=== PATIENT | male | born 1975 | race Asian ===

== ENCOUNTER 2023-02-04 19:35 | Emergency (ER) | payer OTHER, SELFPAY ==
[2023-02-04] VITALS (11 sets, daily range): BP systolic 116–132; BP diastolic 72–79; PULSE 101–109; RESP 21–28; TEMP 37.3; O2SAT 92–96; BMI 20.7
--- NOTE | 2023-02-04 19:52 | DI.RAD.S_ITS ---
PROCEDURE: XR CHEST 1V INDICATIONS: Shortness of breath TECHNIQUE: One view of the chest was acquired. COMPARISON: [facility], CR, XR CHEST 1 VIEW, 01/28/2023, 17:36. FINDINGS: Surgical changes and devices: None. Lungs and pleura: Lungs are clear. No pleural effusions or pneumothorax. Mediastinum: Mediastinal contours appear normal. Heart size is normal. Bones and chest wall: No suspicious bony lesions. Overlying soft tissues appear unremarkable. IMPRESSION: 1. No acute cardiopulmonary disease. Dictated by: Ildefonso Luna M.D. on 02/04/2023 at 20:24 Approved by: Ildefonso Luna M.D. on 02/04/2023 at 20:24
--- NOTE | 2023-02-04 20:04 | ED_ITS ---
HPI - SOB/Dyspnea General Chief Complaint: Shortness of Breath/Dyspnea Stated Complaint: asthma, difficulty breathing Time Seen by Provider: 02/04/23 20:03 Source: patient Mode of arrival: other Limitations: no limitations History of Present Illness HPI Narrative: Patient is a 47-year-old male with history of asthma presenting today with increasing shortness of breath. He reports it has been ongoing for the last few days. No real fever or chills. He just has a hard time breathing. No abdominal pain nausea or vomiting no chest pain. Related Data Previous Rx's Medication Instructions Recorded albuterol sulfate 2.5 mg/3 mL 2.5 mg (3 mL) inhalation QID PRN 02/04/23 (0.083 %) solution for nebulization bronchospasm #75 mL prednisone 20 mg tablet 40 mg PO DAILY #10 tabs 02/04/23 Allergies Allergy/AdvReac Type Severity Reaction Status Date / Time No Known Drug Allergies Allergy Verified 02/04/23 20:24 Review of Systems Review of Systems ROS Unobtainable: All systems reviewed & are unremarkable except as noted in HPI and below Exam Initial Vital Signs Initial Vital Signs: Vital Signs Temperature 99.1 F 02/04/23 19:38 Pulse Rate 107 H 02/04/23 19:38 Respiratory Rate 24 02/04/23 19:38 Blood Pressure 116/79 02/04/23 19:38 Pulse Oximetry 93 02/04/23 19:38 Oxygen Delivery Method Room Air 02/04/23 19:38 GENERAL: Alert 47-year-old male appears in [id number] respiratory distress HEENT: Head atraumatic,EOMI, pupils reactive, face symmetric, moist mucous membranes CARDIOVASCULAR: Regular rate and rhythm without murmurs, rubs or gallops. RESPIRATORY: Wheezing throughout tachypneic able to speak in full sentences ABDOMEN: Soft, nontender. Normoactive bowel sounds all 4 quadrants. No guarding or rebound. EXTREMITIES: Normal range of motion, no clubbing or edema. Neurovascularly intact NEUROLOGICAL: Alert and oriented x4.Normal gait and speech. SKIN: Warm, dry, no laceration, no petechiae, no rashes or lesions. Course Orders Ordered: ED Orders 02/04/23 19:46 Respiratory Panel (Film Array) Stat 02/04/23 19:52 XR chest 1V Stat Measure peak expiratory flow ONCE RT Consult Eval and Treat NOW 02/04/23 20:00 EKG-12 Lead Stat 02/04/23 20:05 Complete Blood Count AUTO DIFF Stat Comprehensive Metabolic Panel Stat Lactate (Lactic Acid) Stat NT-proBNP (BNP-Adult 18+) Stat Prothrombin Time INR Stat Troponin I Stat Discontinued Medications Albuterol (Albuterol Hfa Prepack) 1 box MISC SEEINSTR ONE Stop: 02/04/23 22:09 Last Admin: 02/04/23 22:12 Dose: 1 box Documented By: ULCY Albuterol/Ipratropium (Albuterol/Ipratropium 3 Ml Ampul) 9 ml INH NOW ONE Stop: 02/04/23 20:05 Last Admin: 02/04/23 20:08 Dose: 9 ml Documented By: GAEL Methylprednisolone (Methylprednisolone 125 Mg/2 Ml Vial) 125 mg IV NOW ONE Stop: 02/04/23 20:05 Last Admin: 02/04/23 20:24 Dose: 125 mg Documented By: ESTUARDO Vital Signs Vital signs: Vital Signs - 8 hr 02/04/23 19:38 02/04/23 20:08 02/04/23 19:54 Temperature 99.1 F Pulse Rate 107 H 103 H 104 H Respiratory Rate 24 24 Blood Pressure 116/79 Pulse Oximetry 93 96 95 Oxygen Delivery Method Room Air Room Air 02/04/23 20:00 02/04/23 20:00 02/04/23 20:15 Temperature Pulse Rate 101 H 103 H Respiratory Rate 25 H 26 H Blood Pressure 125/77 Pulse Oximetry 95 94 Oxygen Delivery Method 02/04/23 20:30 02/04/23 20:30 02/04/23 20:45 Temperature Pulse Rate 109 H 107 H Respiratory Rate 22 21 Blood Pressure 132/79 Pulse Oximetry 93 92 Oxygen Delivery Method Room Air 02/04/23 21:00 02/04/23 21:00 02/04/23 21:15 Temperature Pulse Rate 104 H 103 H Respiratory Rate 23 24 Blood Pressure 129/72 Pulse Oximetry 93 95 Oxygen Delivery Method 02/04/23 21:30 02/04/23 21:30 02/04/23 21:45 Temperature Pulse Rate 104 H 101 H Respiratory Rate 28 H 28 H Blood Pressure 130/73 Pulse Oximetry 95 95 Oxygen Delivery Method MDM - SOB/Dyspnea Lab Data 02/04/23 20:05 02/04/23 20:05 Labs: Lab Results 02/04/23 02/04/23 02/04/23 Range/Units 19:46 20:05 20:05 WBC 9.9 (4.5-11.0) X10^3/uL RBC 5.11 (4.5-5.9) X10^6/uL Hgb 13.9 (13.5-17.5) g/dL Hct 41.8 (41-53) % MCV 81.8 (80-100) fL MCH 27.2 (26-34) PG MCHC 33.2 (30-36) % RDW 15.4 H (11.6-14.8) % Plt Count 166 (150-400) X10^3/uL Neut % (Auto) 53.2 (50-75) % Lymph % (Auto) 27.0 (25-40) % [place] % (Auto) 11.0 (3-14) % Eos % (Auto) 8.1 H (2-4) % Baso % (Auto) 0.7 (0-2) % Neut # (Auto) 5200 (2023-3314) /uL Lymph # (Auto) 2700 (2690-4524) /uL [place] # (Auto) 1100 H (0-900) /uL Eos # (Auto) 800 H (0-450) /uL Baso # (Auto) 100 (0-100) /uL PT 12.6 (10.1-12.7) SECONDS INR 1.1 (0.9-1.3) Sodium (137-145) mmol/L Potassium (3.4-5.1) mmol/L Chloride (98-107) mmol/L Carbon Dioxide (22-32) mmol/L BUN (9-20) mg/dL Creatinine (0.66-1.25) mg/dL Estimated GFR (>60) mL/min BUN/Creatinine Ratio (6-22) Glucose (70-100) mg/dL Lactate (0.7-2.1) mmol/L Calcium (8.4-10.2) mg/dL Total Bilirubin (0.2-1.3) mg/dL AST (17-59) IU/L ALT (<50) IU/L Alkaline Phosphatase (38-126) U/L Troponin I (0.01-0.034) ng/mL NT-Pro-B Natriuret Pep (<125) pg/mL Total Protein (6.3-8.2) g/dL Albumin (3.5-5.0) g/dL Globulin (1.7-4.1) g/dL Albumin/Globulin Ratio (1.0-2.8) Chlamy pneumoniae PCR Not detected (Not Detect) Adenovirus (PCR) Not detected (Not Detect) B. pertussis DNA (PCR) Not detected (Not Detecte) B.parapertussis DNA PCR Not detected (Not Detecte) Coronavirus OC43 (PCR) Not detected (Not Detect) Coronavirus HKU1 (PCR) Not detected (Not Detect) Coronavirus 229E (PCR) Not detected (Not Detect) SARS-CoV-2 (PCR) Not detected (Not Detecte) Coronavirus NL63 (PCR) Not detected (Not Detect) Human Metapneumovir PCR Not detected (Not Detect) Influenza Type A (PCR) Not detected (Not Detect) Influenza Type B (PCR) Not detected (Not Detect) M. pneumoniae (PCR) Not detected (Not Detect) Parainfluenza 1 (PCR) Not detected (Not Detect) Parainfluenza 2 (PCR) Not detected (Not Detect) Parainfluenza 3 (PCR) Not detected (Not Detect) Parainfluenza 4 (PCR) Not detected (Not Detect) RSV (PCR) Not detected (Not Detect) Entero/Rhino (PCR) Not detected (Not Detect) 02/04/23 02/04/23 Range/Units 20:05 20:05 WBC (4.5-11.0) X10^3/uL RBC (4.5-5.9) X10^6/uL Hgb (13.5-17.5) g/dL Hct (41-53) % MCV (80-100) fL MCH (26-34) PG MCHC (30-36) % RDW (11.6-14.8) % Plt Count (150-400) X10^3/uL Neut % (Auto) (50-75) % Lymph % (Auto) (25-40) % [place] % (Auto) (3-14) % Eos % (Auto) (2-4) % Baso % (Auto) (0-2) % Neut # (Auto) (7184-8293) /uL Lymph # (Auto) (6551-2860) /uL [place] # (Auto) (0-900) /uL Eos # (Auto) (0-450) /uL Baso # (Auto) (0-100) /uL PT (10.1-12.7) SECONDS INR (0.9-1.3) Sodium 135 L (137-145) mmol/L Potassium 3.7 (3.4-5.1) mmol/L Chloride 104 (98-107) mmol/L Carbon Dioxide 24 (22-32) mmol/L BUN 11 (9-20) mg/dL Creatinine 0.70 (0.66-1.25) mg/dL Estimated GFR > 60 (>60) mL/min BUN/Creatinine Ratio 15.7 (6-22) Glucose 77 (70-100) mg/dL Lactate 1.4 (0.7-2.1) mmol/L Calcium 8.8 (8.4-10.2) mg/dL Total Bilirubin 1.0 (0.2-1.3) mg/dL AST 36 (17-59) IU/L ALT 27 (<50) IU/L Alkaline Phosphatase 84 (38-126) U/L Troponin I < 0.012 (0.01-0.034) ng/mL NT-Pro-B Natriuret Pep 168 H (<125) pg/mL Total Protein 7.2 (6.3-8.2) g/dL Albumin 4.1 (3.5-5.0) g/dL Globulin 3.1 (1.7-4.1) g/dL Albumin/Globulin Ratio 1.3 (1.0-2.8) Chlamy pneumoniae PCR (Not Detect) Adenovirus (PCR) (Not Detect) B. pertussis DNA (PCR) (Not Detecte) B.parapertussis DNA PCR (Not Detecte) Coronavirus OC43 (PCR) (Not Detect) Coronavirus HKU1 (PCR) (Not Detect) Coronavirus 229E (PCR) (Not Detect) SARS-CoV-2 (PCR) (Not Detecte) Coronavirus NL63 (PCR) (Not Detect) Human Metapneumovir PCR (Not Detect) Influenza Type A (PCR) (Not Detect) Influenza Type B (PCR) (Not Detect) M. pneumoniae (PCR) (Not Detect) Parainfluenza 1 (PCR) (Not Detect) Parainfluenza 2 (PCR) (Not Detect) Parainfluenza 3 (PCR) (Not Detect) Parainfluenza 4 (PCR) (Not Detect) RSV (PCR) (Not Detect) Entero/Rhino (PCR) (Not Detect) Imaging Data Chest x-ray: Radiologist's Impression: PROCEDURE:? XR CHEST 1V ? INDICATIONS:? Shortness of breath ? TECHNIQUE:? One view of the chest was acquired.? ? COMPARISON:? [facility], , XR CHEST 1 VIEW, 01/28/2023, 17:36. ? FINDINGS:? ? Surgical changes and devices:? None.? ? Lungs and pleura:? Lungs are clear.? No pleural effusions or pneumothorax.? ? Mediastinum:? Mediastinal contours appear normal.? Heart size is normal.? ? Bones and chest wall:? No suspicious bony lesions.? Overlying soft tissues appear unremarkable.? ? IMPRESSION:? ? 1.? No acute cardiopulmonary disease. ? ? ? Dictated by: Ildefonso Luna M.D. on 02/04/2023 at 20:24 ECG Data Interpretation: Normal sinus rhythm rate 101 CO interval 138 QRS 76 QTC 450, no ischemic changes MDM Narrative Medical decision making narrative: Patient 47 year male history of asthma presenting with increasing difficulty breathing. Breath sounds wheezing on. Multiple albuterol treatments and Solu- Medrol seem to help. Blood work is overall reassuring no evidence of infection or pneumonia on x-ray. EKG is sinus rhythm without ischemic changes. Patient has no leukocytosis or anemia significant electrolyte abnormality or troponin elevation. Symptoms improved he is hypoxic. Does not require admission to the hospital. Discharge Plan Departure Patient Disposition: Home Clinical Impression: Asthma with exacerbation Instructions: DI for Asthma -- Adult Activity Restrictions/Additional Instructions: *You have been diagnosed with asthma exacerbation *What to do: Hope you feel better soon. Uterine nebulizers as instructed. *Continue to take medications as directed--> SENT TO [facility] Prednisone 40 mg once a day for 5 days Albuterol nebulizer or inhaler every 4 hours as needed for shortness of breath or chest *Follow up with your primary care provider in 2-3 days or call [phone] *Return to ER if you should have increasing shortness of breath chest or any new, worsening or concerning symptoms Prescriptions: New albuterol sulfate 2.5 mg /3 mL (0.083 %) solution for nebulization 2.5 mg inhalation QID PRN (Reason: bronchospasm) Qty: 75 0RF prednisone 20 mg tablet 40 mg PO DAILY Qty: 10 0RF Stand Alone Forms: Patient Portal/API
[2023-02-04] MEDS: ALBUTEROL/IPRATROPIUM 3 ML AMPUL 9 ML INH (20:08)
[2023-02-04] MEDS: methylPREDNISolone 125 MG/2 ML VIAL IV (20:24)
[2023-02-04 20:40] LABS: Add Manual Diff / Slide Review NO; Basophils Absolute Auto 100 /uL (0-100); Basophils Percent Auto 0.7 % (0-2); Eosinophils Absolute Auto 800 /uL (0-450); Eosinophils Percent Auto 8.1 % (2-4); Hematocrit 41.8 % (41-53); Hemoglobin 13.9 g/dL (13.5-17.5); Lymphocytes Absolute Auto 2700 /uL (1100-4500); Mean Corpuscular HGB Conc 33.2 % (30-36); Mean Corpuscular Hemoglobin 27.2 PG (26-34); Mean Corpuscular Volume 81.8 fL (80-100); Monocytes Absolute Auto 1100 /uL (0-900); Neutrophils Absolute Auto 5200 /uL (1500-7000); Neutrophils Percent Auto 53.2 % (50-75); Platelet Count 166 X10^3/uL (150-400); Red Blood Cell Count 5.11 X10^6/uL (4.5-5.9); Red Cell Distribution Width 15.4 % (11.6-14.8); White Blood Cell Count 9.9 X10^3/uL (4.5-11.0)
[2023-02-04 20:46] LABS: INR 1.1 (0.9-1.3); Prothrombin Time 12.6 SECONDS (10.1-12.7)
[2023-02-04 20:49] LABS: Lactate (Lactic Acid) 1.4 mmol/L (0.7-2.1)
[2023-02-04 20:57] LABS: Alanine Aminotransferase 27 IU/L (<50); Albumin 4.1 g/dL (3.5-5.0); Albumin Globulin Ratio 1.3 (1.0-2.8); Alkaline Phosphatase 84 U/L (38-126); Aspartate Aminotransferase 36 IU/L (17-59); BUN Creatinine Ratio 15.7 (6-22); Blood Urea Nitrogen 11 mg/dL (9-20); Calcium 8.8 mg/dL (8.4-10.2); Carbon Dioxide 24 mmol/L (22-32); Chloride 104 mmol/L (98-107); Estimated Glomerular Filt Rate > 60 mL/min (>60); Globulin 3.1 g/dL (1.7-4.1); Glucose 77 mg/dL (70-100); HEMOLYSIS 25 (0-50); Potassium 3.7 mmol/L (3.4-5.1); Sodium 135 mmol/L (137-145); Total Protein 7.2 g/dL (6.3-8.2)
[2023-02-04 21:09] LABS: NT-proBNP (BNP-Adult 18+) 168 pg/mL (<125); Troponin I < 0.012 ng/mL (0.01-0.034)
[2023-02-04 21:24] LABS: Adenovirus Not Detected (Not Detect); Coronavirus 229E Not Detected (Not Detect); Coronavirus HKU1 Not Detected (Not Detect); Coronavirus NL 63 Not Detected (Not Detect); Coronavirus OC43 Not Detected (Not Detect); Human Metapneumovirus Not Detected (Not Detect); Human Rhinovirus/Enterovirus Not Detected (Not Detect); Influenza A Not Detected (Not Detect); Influenza B Not Detected (Not Detect); Parainfluenza Virus 1 Not Detected (Not Detect); Parainfluenza Virus 2 Not Detected (Not Detect); Parainfluenza Virus 3 Not Detected (Not Detect); SARS- CoV-2 Not Detected (Not Detecte)
[2023-02-04 21:25] LABS: B. parapertussis Not Detected (Not Detecte); Bordetella pertussis Not Detected (Not Detecte); Chlamydophila pneumoniae Not Detected (Not Detect); Mycoplasma pneumoniae Not Detected (Not Detect); Parainfluenza Virus 4 Not Detected (Not Detect); Respiratory Syncytial Virus Not Detected (Not Detect)
[2023-02-04] MEDS: ALBUTEROL HFA PREPACK 1 BOX MISC (22:12)
== END 2023-02-04 22:16 | disposition home or self-care (01) ==
PROVIDERS: Emergency Medicine; Emergency Provider Emergency Medicine
DX: J45.901 Unspecified asthma with (acute) exacerbation (principal)
CPT/HCPCS: 36415; 71045; 80053; 83605; 83880; 84484; 85025; 85610; 87633; 93005; 93010; 94150; 94640; 96374; 99284; J2930

== ENCOUNTER 2023-02-23 22:00 | Emergency (ER) | payer OTHER, SELFPAY ==
[2023-02-23 22:39] VITALS: BP 129/80; PULSE 100; RESP 18; TEMP 37.1; O2SAT 94
[2023-02-23] MEDS: ALBUTEROL/IPRATROPIUM 3 ML AMPUL INH (22:54)
[2023-02-23] MEDS: ALBUTEROL 2.5 MG/3 ML NEB (ADULT) INH ×2 (22:58→23:35)
[2023-02-23 23:06] VITALS: PULSE 105; O2SAT 96
[2023-02-23 23:07] VITALS: BP 123/75; PULSE 101; PULSE 98; O2SAT 95
[2023-02-23 23:30] VITALS: BP 123/74; PULSE 95; O2SAT 95
--- NOTE | 2023-02-23 23:37 | ED.GENADULT ---
HPI - General Adult General Chief complaint: Asthma Stated complaint: Run out of medicine Time Seen by Provider: 02/23/23 22:37 Source: patient Mode of arrival: Ambulatory History of Present Illness HPI narrative: 47-year-old male former smoker with history of asthma as moved here relatively recently and is having increased wheezing and difficulty in breathing. He denies any runny nose, sore throat or cough. He is had no fever or chills. He denies any chest pain, nausea, vomiting or diarrhea. He has run out of his albuterol nebulizers at home. His most recent visit for similar circumstances was a few weeks ago and he had a 5 day course of steroids at that time. Related Data Previous Rx's Medication Instructions Recorded albuterol sulfate 2.5 mg/3 mL 2.5 mg (3 mL) inhalation QID PRN 02/04/23 (0.083 %) solution for nebulization bronchospasm #75 mL prednisone 20 mg tablet 40 mg PO DAILY #10 tabs 02/04/23 albuterol sulfate 2.5 mg/3 mL 2.5 mg (3 mL) inhalation Q4-6H PRN 02/23/23 (0.083 %) solution for nebulization shortness of breath or wheezing #90 mL prednisone 10 mg tablet See Rx Instructions .Route 02/23/23 .COMPLEX #30 tabs Allergies Allergy/AdvReac Type Severity Reaction Status Date / Time No Known Drug Allergies Allergy Verified 02/04/23 20:24 Review of Systems Review of Systems Narrative: GENERAL: Denies chills, fatigue, malaise, fever, sweats. HEENT: Denies sinus pain, ear pain, sore throat, difficulty swallowing, dizziness. RESPIRATORY: See HPI CARDIOVASCULAR: Denies chest pain, palpitations, orthopnea, edema, GASTROINTESTINAL: Denies nausea, vomiting, abdominal pain, diarrhea, constipation, melena. : Denies dysuria, frequency, incontinence, hematuria, urinary retention. MUSCULOSKELETAL: denies weakness, joint pain, or bony pain SKIN: Denies rash, skin lesions, or other NEUROLOGIC: Denies weakness, headache, numbness, change in speech, confusion, seizures, incoordination. PSYCHIATRIC: No concerning psychosocial issues. 12 point review of systems is negative except for those stated above Patient History Social History Smoking Status: Former smoker Smoking Status: Former smoker Substance Use Type: does not use Exam Narrative Exam Narrative: GENERAL: [47] year old patient appears stated age. Well-developed patient, in mild distress. HEAD: Atraumatic. Normocephalic. EYES: Pupils equal round and reactive. Extraocular motions intact. No scleral icterus. No injection or drainage. ENT: Nose without bleeding, purulent drainage. Throat without erythema, tonsillar hypertrophy or exudate. Airway patent. NECK: Trachea midline. Non tender CARDIOVASCULAR: Regular rate and rhythm without murmurs, gallops, or rubs. RESPIRATORY: Increased work of breathing with inspiratory and expiratory wheeze in all valadez, no hypoxemia, no crackles GASTROINTESTINAL: Abdomen soft, non-tender, nondistended. EXTREMITIES: No edema or joint tenderness. BACK: Nontender without deformity or crepitance. No flank tenderness. NEURO: AOx3. SKIN: No rash or erythema of visible areas Initial Vital Signs Initial Vital Signs: Vital Signs Temperature 98.8 F 02/23/23 22:39 Pulse Rate 100 H 02/23/23 22:39 Respiratory Rate 18 02/23/23 22:39 Blood Pressure 129/80 02/23/23 22:39 Pulse Oximetry 94 02/23/23 22:39 Oxygen Delivery Method Room Air 02/23/23 22:39 Course Orders Ordered: Discontinued Medications Albuterol (Albuterol 2.5 Mg/3 Ml Neb (Adult)) 2.5 mg INH NOW ONE Stop: 02/23/23 22:56 Last Admin: 02/23/23 22:58 Dose: 2.5 mg Documented By: VALERIE Albuterol (Albuterol 2.5 Mg/3 Ml Neb (Adult)) 2.5 mg INH NOW ONE Stop: 02/23/23 23:28 Last Admin: 02/23/23 23:35 Dose: 2.5 mg Documented By: VALERIE [facility] Hfa Prepack[facility]: 02/23/23 23:40 Last Admin: 02/23/23 23:42 Dose: 1 box Documented By: VALERIE Albuterol/Ipratropium (Albuterol/Ipratropium 3 Ml Ampul) 3 ml INH NOW ONE Stop: 02/23/23 22:46 Last Admin: 02/23/23 22:54 Dose: 3 ml Documented By: VALERIE Prednisone (Prednisone 20 Mg Tablet) 60 mg PO NOW ONE Stop: 02/23/23 23:40 Last Admin: 02/23/23 23:57 Dose: 60 mg Documented By: AP Reevaluation(s) Reevaluation #1: Significant improvement after above-stated therapies Vital Signs Vital signs: Vital Signs - 8 hr 02/23/23 22:39 02/23/23 23:07 02/23/23 23:06 Temperature 98.8 F Pulse Rate 100 H 98 H 105 H Respiratory Rate 18 Blood Pressure 129/80 Blood Pressure [Left Arm] 123/75 Pulse Oximetry 94 96 Oxygen Delivery Method Room Air 02/23/23 23:07 02/23/23 23:07 02/23/23 23:30 Temperature Pulse Rate 101 H Respiratory Rate Blood Pressure 123/75 123/74 Blood Pressure [Left Arm] Pulse Oximetry 95 Oxygen Delivery Method 02/23/23 23:30 02/23/23 23:58 02/24/23 00:00 Temperature Pulse Rate 95 H 99 H Respiratory Rate Blood Pressure 128/75 Blood Pressure [Left Arm] Pulse Oximetry 95 95 Oxygen Delivery Method Room Air Room Air Medical Decision Making MDM Narrative Medical decision making narrative: [47] year old patient presents with increased wheezing Multiple etiologies for patient's symptoms considered including, but not limited to: [Asthma exacerbation, viral upper respiratory infection versus other] Prior Charts reviewed in our EMR Primary Historian: patient Patient's symptoms improved over duration of stay with above-stated therapies. Findings and discharge diagnosis discussed with patient/family followed by verbalization of understanding Return precautions discussed with patient/family whom verbalize understanding of diagnosis and plan Discharge Plan Departure Patient Disposition: Home Clinical Impression: Asthma with acute exacerbation Instructions: Asthma -- Adult Activity Restrictions/Additional Instructions: *You have been diagnosed with [asthma exacerbation] *What to do: *Please continue to take your regular medications as directed. [x ] New medication prescriptions sent to your pharmacy: [[facility] ] [ ] New medication written as a paper prescription [ ] No new medications given *Please follow up with your primary care provider in 2-3 days, call for an appointment. Let them know you were seen in the Emergency Department and that we ask that you be seen in follow up. We will electronically transmit a record of today's note if your PCP is in our system *If you do not have a primary care provider please contact the [facility] Resource line at [phone]. They will ask some questions about your medical history and help get you set up with a doctor in the community. *Return to Emergency Department if you should have any new, worsening or concerning symptoms, such as [fever greater than 101 F, shaking chills, worsening pain, persistent vomiting or other bothersome symptoms] Prescriptions: New prednisone 10 mg tablet See Rx Instructions .ROUTE .COMPLEX Qty: 30 0RF Rx Instructions: Day 1,2,3: 40mg PO Daily Day 4,5,6: 30mg PO Daily Day 7,8,9: 20mg PO Daily Day 10,11,12: 10mg PO Daily #30 albuterol sulfate 2.5 mg /3 mL (0.083 %) solution for nebulization 2.5 mg INHALATION Q4-6H PRN (Reason: shortness of breath or wheezing) Qty: 90 0RF No Action albuterol sulfate 2.5 mg /3 mL (0.083 %) solution for nebulization 2.5 mg inhalation QID PRN (Reason: bronchospasm) Qty: 75 0RF prednisone 20 mg tablet 40 mg PO DAILY Qty: 10 0RF Stand Alone Forms: Patient Portal/API
[2023-02-23] MEDS: ALBUTEROL HFA PREPACK 1 BOX MISC (23:42)
[2023-02-23] MEDS: predniSONE 20 MG TABLET 60 MG PO (23:57)
[2023-02-23 23:58] VITALS: PULSE 99; O2SAT 95
[2023-02-24] VITALS: BP 128/75
== END 2023-02-24 00:14 | disposition home or self-care (01) ==
PROVIDERS: Emergency Provider Emergency Medicine
DX: J45.901 Unspecified asthma with (acute) exacerbation (principal)
CPT/HCPCS: 94640; 99283; J7613